=== PATIENT | female | born 1930 ===

== ENCOUNTER 2019-06-04 11:27 | Emergency (ER) | payer MEDICARE, MEDICAID ==
[~2019-06-04] VITALS: Ht 139.7 cm; Wt 82.5 kg
[2019-06-04 12:51] VITALS: BP 171/87
== END 2019-06-04 14:07 | disposition home or self-care (01) ==
LOC: ED 14:06
DX: E11.65 Type 2 diabetes mellitus with hyperglycemia (principal); I10 Essential (primary) hypertension
CPT/HCPCS: 36415; 80053; 81001; 83690; 85025; 87077; 87086; 87186; 99283

== ENCOUNTER 2019-11-06 19:29 | Inpatient (IN) | payer MEDICARE, MEDICAID ==
[~2019-11-06] VITALS: Ht 137.2 cm; Wt 50.6 kg
[2019-11-06] MEDS ORDERED: SODIUM CHLORIDE FLUSH 10ML SYR IVF ONE (20:00)
[2019-11-06] MEDS ORDERED: ASPIRIN 81 MG TABLET CHEW PO ONE (20:00)
[2019-11-06 20:24] LABS: MICROSCOPIC AUTO
[2019-11-06 20:28] LABS: RAPID INFLUENZA A Negative (Negative); RAPID INFLUENZA B Negative (Negative)
[2019-11-06] MEDS ORDERED: hydrALAzine 20 MG/ML, 1ML ONE (20:33)
[2019-11-06] MEDS ORDERED: ASPIRIN 81 MG TABLET CHEW ONE (20:34)
[2019-11-06 20:41] LABS: ALANINE AMINOTRANSFERASE 19 U/L (12-78); ALBUMIN 3.4 g/dL (3.4-5.0); CALCIUM 8.6 mg/dL (8.5-10.1); CHLORIDE 89 mmol/L (98-107); CREATININE 1.11 mg/dL (0.55-1.02)
[2019-11-06 20:52] LABS: ANION GAP 11 mmol/L (5-15)
[2019-11-06 20:54] LABS: ALKALINE PHOSPHATASE 60 U/L (45-117); BILIRUBIN,TOTAL 0.8 mg/dL (0.2-1.0)
[2019-11-06 20:55] LABS: TOTAL PROTEIN 7.8 g/dL (6.4-8.2)
[2019-11-06] MEDS ORDERED: hydrALAzine 20 MG/ML, 1ML IV ONE ×2 (21:00→23:00)
[2019-11-06 21:05] LABS: MD YES; MEAN CORPUSCULAR HEMOGLOBIN 30.7 pg (27.0-34.8); MEAN CORPUSCULAR HGB CONC 33.2 g/dL (32.4-35.8); MEAN CORPUSCULAR VOLUME 92.6 fL (80-100); MEAN PLATELET VOLUME 7.9 fL (7.4-10.4); PLATELET COUNT 281 x10^3/uL (130-400); RED BLOOD COUNT 4.17 x10^6/uL (3.82-5.3); RED CELL DISTRIBUTION WIDTH 11.8 % (9.6-15.2)
[2019-11-06 21:10] LABS: BAND#(MANUAL) 0.08 x10^3/uL; BANDS%(MANUAL) 1 % (0-7); EOS% (MANUAL) 6 % (1-7); LYMPH#(MANUAL) 2.32 x10^3/uL (1-3.4); LYMPHS% (MANUAL) 28 % (22-44); MONOS#(MANUAL) 0.66 x10^3/uL (0.3-2.7); MONOS% (MANUAL) 8 % (2-9); SEG#(MANUAL) 4.73 x10^3/uL (1.8-6.8); SEGS% (MANUAL) 57 % (42-75)
[2019-11-06 21:11] LABS: <PLATELET ESTIMATE> ADEQUATE; <PLT MORPHOLOGY> NORMAL PLT MORPH; <RBC MORPHOLOGY> NORMAL
[2019-11-06 21:56] LABS: TROPONIN I < 0.015 ng/mL (0.000-0.045)
[2019-11-06] MEDS ORDERED: PRAV40TA2 PO (22:30)
[2019-11-06] MEDS ORDERED: METF500T17 PO (22:30)
[2019-11-06] MEDS ORDERED: LINA5TAB PO (22:30)
[2019-11-06] MEDS ORDERED: LOSA50TA14 PO (22:30)
--- NOTE | 2019-11-06 22:31 | NUR ---
HOME MEDICATIONS UPDATED PER FAMILY LIST. PT RESTING IN BED, FAMILY AT BEDSIDE. ERP IN ROOM. FAMILY DENIES ANY FURTHER NEEDS OR CONCERNS AT THIS TIME. CALL L[facility] IN REACH.
[2019-11-06] MEDS ORDERED: SODIUM CHLORIDE 0.9% 1,000 ML IV SCH (23:30)
[2019-11-06] MEDS ORDERED: BISACODYL 10 MG SUPP PR PRN (23:30)
[2019-11-06] MEDS ORDERED: hydrALAzine 20 MG/ML, 1ML IV PRN (23:30)
[2019-11-06] MEDS ORDERED: POLYETHYLENE GLYCOL 17 GM PACKET PO PRN (23:30)
[2019-11-06] MEDS ORDERED: ACETAMINOPHEN 325 MG TABLET PO PRN (23:30)
[2019-11-06] MEDS ORDERED: ONDANSETRON ODT 4 MG PO PRN (23:30)
--- NOTE | 2019-11-06 23:41 | NUR ---
REPORT CALLED TO DEYVI TRAN RN. PT AND FAMILY UPDATED ON PLAN OF CARE. AWAITING TRANSPORTATION AT THIS TIME. CALL LIGHT IN REACH.
[2019-11-07] VITALS (7 sets, daily range): BP systolic 123–178; BP diastolic 67–85
[2019-11-07] MEDS: PLEASE ENTER WEIGHT MC SCH ×2 (00:30→08:30)
[2019-11-07 05:11] LABS: BASOPHILS # (AUTO) 0.02 x10^3/uL (0-0.1); BASOPHILS % (AUTO) 0 % (0-1); EOSINOPHILS # (AUTO) 0.32 x10^3/uL (0-0.4); EOSINOPHILS % (AUTO) 5 % (1-7); LYMPHOCYTES # (AUTO) 1.19 x10^3/uL (1-3.4); LYMPHOCYTES % (AUTO) 17 % (22-44); MD NO; MEAN CORPUSCULAR HEMOGLOBIN 31.2 pg (27.0-34.8); MEAN CORPUSCULAR HGB CONC 33.7 g/dL (32.4-35.8); MEAN CORPUSCULAR VOLUME 92.8 fL (80-100); MEAN PLATELET VOLUME 7.5 fL (7.4-10.4); MONOCYTES # (AUTO) 0.52 x10^3/uL (0.2-0.8); MONOCYTES % (AUTO) 8 % (2-9); NEUTROPHILS # (AUTO) 4.92 x10^3/uL (1.8-6.8); NEUTROPHILS % (AUTO) 71 % (42-75); PLATELET COUNT 283 x10^3/uL (130-400); RED BLOOD COUNT 4.13 x10^6/uL (3.82-5.3); RED CELL DISTRIBUTION WIDTH 12.3 % (9.6-15.2)
[2019-11-07 05:19] LABS: ALBUMIN 3.2 g/dL (3.4-5.0); ANION GAP 10 mmol/L (5-15); CALCIUM 8.4 mg/dL (8.5-10.1); CHLORIDE 91 mmol/L (98-107)
[2019-11-07 05:22] LABS: ALANINE AMINOTRANSFERASE 17 U/L (12-78); ALKALINE PHOSPHATASE 62 U/L (45-117); BILIRUBIN,TOTAL 0.8 mg/dL (0.2-1.0); CREATININE 1.12 mg/dL (0.55-1.02); TOTAL PROTEIN 7.3 g/dL (6.4-8.2)
[2019-11-07] MEDS: metFORMIN 500 MG TABLET PO SCH (08:34)
[2019-11-07] MEDS: LINAGLIPTIN 5 MG TAB PO SCH (08:34)
[2019-11-07] MEDS: SENNA/DOCUSATE TABLET PO SCH (08:34)
[2019-11-07] MEDS ORDERED: LOSARTAN 50MG TABLET PO SCH (09:00)
[2019-11-07 13:20] LABS: OSMOLALITY,URINE 198 mOsm/kg (500-850)
[2019-11-07] MEDS ORDERED: PRAVASTATIN 40 MG TABLET PO SCH (21:00)
[2019-11-07] MEDS ORDERED: SODIUM CHLORIDE 0.9% 1,000 ML IV SCH (23:30)
[2019-11-08 00:54] VITALS: BP 147/78
[2019-11-08 05:19] LABS: ANION GAP 10 mmol/L (5-15); CALCIUM 7.9 mg/dL (8.5-10.1); CHLORIDE 100 mmol/L (98-107)
[2019-11-08 05:20] LABS: CREATININE 1.03 mg/dL (0.55-1.02)
[2019-11-08 09:21] VITALS: BP 106/80
[2019-11-08] MEDS ORDERED: ACETAMINOPHEN 325 MG TABLET PO PRN (09:30)
[2019-11-08] MEDS: metFORMIN 500 MG TABLET PO SCH (09:46)
[2019-11-08] MEDS: LINAGLIPTIN 5 MG TAB PO SCH (09:46)
[2019-11-08] MEDS: SENNA/DOCUSATE TABLET PO SCH (09:47)
[2019-11-08] MEDS ORDERED: HYDR-3341 PO ×2 (12:02→12:05)
== END 2019-11-08 16:10 | disposition home or self-care (01) | DRG 305 ==
LOC: ED 22:58 → EDIP 23:17 → 4EST 11-07 00:01
PROVIDERS: ADMIT Internal Medicine; ATTEND Internal Medicine
DX: I16.0 Hypertensive urgency (principal); E87.1 Hypo-osmolality and hyponatremia; E78.5 Hyperlipidemia, unspecified; E11.9 Type 2 diabetes mellitus without complications; E87.8 Other disorders of electrolyte and fluid balance, not elsewhere classified; I10 Essential (primary) hypertension; Z66 Do not resuscitate; Z91.011 Allergy to milk products; Z79.84 Long term (current) use of oral hypoglycemic drugs
CPT/HCPCS: 36415; 71045; 80048; 80053; 81001; 83036; 83690; 83880; 83930; 83935; 84295; 84300; 84443; 84484; 85025; 87400; 93005; 96374; 96376; 99285; G0378; J0360; J7030